=== PATIENT | female | born 1930 | race Two or more races ===

== ENCOUNTER 2016-05-12 08:15 | Outpatient (CLI) | payer MEDICARE, OTHER | END 2016-05-12 23:59 | disposition home or self-care (01) | LOC: WOU 08:15 | PROVIDERS: ATTEND Podiatrist Foot & Ankle Surgery | DX: L60.0 Ingrowing nail (principal); L84 Corns and callosities; M20.5X2 Other deformities of toe(s) (acquired), left foot; M21.41 Flat foot [pes planus] (acquired), right foot; M79.672 Pain in left foot; M79.671 Pain in right foot; R53.1 Weakness | CPT/HCPCS: 11730; A6402 ==

== ENCOUNTER 2016-07-11 08:05 | Outpatient (CLI) | payer MEDICARE, OTHER | END 2016-07-11 23:59 | disposition home or self-care (01) | LOC: WOU 08:05 | PROVIDERS: ATTEND Podiatrist Foot & Ankle Surgery | DX: L84 Corns and callosities (principal); Z96.651 Presence of right artificial knee joint; Z79.899 Other long term (current) drug therapy; M14.671 Charcot's joint, right ankle and foot; L60.3 Nail dystrophy; M24.575 Contracture, left foot | CPT/HCPCS: A6402; G0463 ==

== ENCOUNTER 2016-09-08 08:10 | Outpatient (CLI) | payer MEDICARE, OTHER | END 2016-09-08 23:59 | disposition home or self-care (01) | LOC: WOU 08:10 | PROVIDERS: ATTEND Podiatrist Foot & Ankle Surgery | DX: L84 Corns and callosities (principal); L85.3 Xerosis cutis; M20.42 Other hammer toe(s) (acquired), left foot; M20.41 Other hammer toe(s) (acquired), right foot; L90.9 Atrophic disorder of skin, unspecified; Z96.651 Presence of right artificial knee joint | CPT/HCPCS: A6402; G0463 ==

== ENCOUNTER 2016-11-10 09:08 | Outpatient (CLI) | payer MEDICARE, OTHER | END 2016-11-10 23:59 | disposition home or self-care (01) | LOC: WOU 09:08 | PROVIDERS: ATTEND Podiatrist Foot & Ankle Surgery | DX: L85.8 Other specified epidermal thickening (principal); L84 Corns and callosities; B35.1 Tinea unguium; I83.893 Varicose veins of bilateral lower extremities with other complications; Z96.651 Presence of right artificial knee joint; M20.42 Other hammer toe(s) (acquired), left foot; M20.41 Other hammer toe(s) (acquired), right foot; Z74.09 Other reduced mobility | CPT/HCPCS: A6402; G0463 ==

== ENCOUNTER 2017-01-12 08:13 | Outpatient (CLI) | payer MEDICARE, OTHER | END 2017-01-12 23:59 | disposition home or self-care (01) | LOC: WOU 08:13 | PROVIDERS: ATTEND Podiatrist Foot & Ankle Surgery | DX: L60.0 Ingrowing nail (principal); L84 Corns and callosities; M20.5X9 Other deformities of toe(s) (acquired), unspecified foot; L90.9 Atrophic disorder of skin, unspecified; L60.3 Nail dystrophy; R68.3 Clubbing of fingers; Z96.651 Presence of right artificial knee joint | CPT/HCPCS: A6402; G0463 ==

== ENCOUNTER 2017-03-23 08:05 | Outpatient (CLI) | payer MEDICARE, OTHER | END 2017-03-23 23:59 | disposition home or self-care (01) | LOC: WOU 08:05 | PROVIDERS: ATTEND Podiatrist Foot & Ankle Surgery | DX: L84 Corns and callosities (principal); M20.5X9 Other deformities of toe(s) (acquired), unspecified foot; I87.2 Venous insufficiency (chronic) (peripheral); B35.1 Tinea unguium; L60.2 Onychogryphosis; L85.3 Xerosis cutis; M79.672 Pain in left foot | CPT/HCPCS: A6402; G0463 ==

== ENCOUNTER 2017-05-25 08:00 | Outpatient (CLI) | payer MEDICARE, OTHER | END 2017-05-25 23:59 | disposition home or self-care (01) | LOC: WOU 08:00 | PROVIDERS: ATTEND Podiatrist Foot & Ankle Surgery | DX: M71.572 Other bursitis, not elsewhere classified, left ankle and foot (principal); M71.571 Other bursitis, not elsewhere classified, right ankle and foot; L84 Corns and callosities; B35.1 Tinea unguium; L85.3 Xerosis cutis | CPT/HCPCS: A6402; G0463 ==

== ENCOUNTER 2017-07-27 08:10 | Outpatient (CLI) | payer MEDICARE, OTHER | END 2017-07-27 23:59 | disposition home or self-care (01) | LOC: WOU 08:10 | PROVIDERS: ATTEND Podiatrist Foot & Ankle Surgery | DX: L84 Corns and callosities (principal); B35.1 Tinea unguium; M79.672 Pain in left foot; M79.671 Pain in right foot | CPT/HCPCS: A6402; G0463 ==

== ENCOUNTER 2017-10-09 08:19 | Outpatient (CLI) | payer MEDICARE, OTHER | END 2017-10-09 23:59 | disposition home or self-care (01) | LOC: WOU 08:19 | PROVIDERS: ATTEND Podiatrist Foot & Ankle Surgery | DX: L84 Corns and callosities (principal); B35.1 Tinea unguium; L60.2 Onychogryphosis; L90.9 Atrophic disorder of skin, unspecified; M79.675 Pain in left toe(s); M79.674 Pain in right toe(s) | CPT/HCPCS: A6402; G0463; Z7610 ==

== ENCOUNTER 2018-04-19 08:00 | Outpatient (CLI) | payer MEDICARE, OTHER | END 2018-04-19 23:59 | disposition home or self-care (01) | LOC: WOU 08:00 | PROVIDERS: ATTEND Podiatrist Foot & Ankle Surgery | DX: L84 Corns and callosities (principal); M20.42 Other hammer toe(s) (acquired), left foot; M20.41 Other hammer toe(s) (acquired), right foot; I87.8 Other specified disorders of veins; Z74.09 Other reduced mobility; L90.9 Atrophic disorder of skin, unspecified; B35.1 Tinea unguium | CPT/HCPCS: A6402; G0463 ==

== ENCOUNTER 2018-08-23 08:45 | Outpatient (CLI) | payer MEDICARE, OTHER | END 2018-08-23 23:59 | disposition home or self-care (01) | LOC: WOU 08:45 | PROVIDERS: ATTEND Podiatrist Foot & Ankle Surgery | DX: L84 Corns and callosities (principal); L60.2 Onychogryphosis; M20.40 Other hammer toe(s) (acquired), unspecified foot | CPT/HCPCS: A6402; G0463 ==

== ENCOUNTER 2020-08-17 08:00 | Outpatient (CLI) | payer MEDICARE, OTHER ==
[2020-08-17] MEDS ORDERED: LIDOCAINE 2% JEL 5 ML TUBE ONE (08:21)
== END 2020-08-17 23:59 | disposition home or self-care (01) ==
LOC: WOU 08:00
PROVIDERS: ATTEND Podiatrist Foot & Ankle Surgery
DX: L84 Corns and callosities (principal); L60.2 Onychogryphosis; B35.1 Tinea unguium; M79.675 Pain in left toe(s); M79.674 Pain in right toe(s)
CPT/HCPCS: G0463